=== PATIENT | female | born 1975 | race Two or more races ===

== ENCOUNTER 2025-05-25 06:00 | Day surgery (SDC) | payer OTHER ==
[2025-05-23 11:12] VITALS: BP 122/77
[2025-05-23 12:12] LABS: COVID-19 AG NEGATIVE (NEGATIVE)
[~2025-05-25] VITALS: Ht 175.3 cm; Wt 88.9 kg
[~2025-05-25 06:00] MED LIST: TOPROL XL200 MG PO
[2025-05-25] MEDS ORDERED: CEFAZOLIN SODIUM 1,000 MG VIAL ONE (11:38)
== END 2025-05-25 18:50 | disposition home or self-care (01) ==
LOC: CIR.AMB 06:00
PROVIDERS: ATTEND Surgery
DX: C50.212 Malignant neoplasm of upper-inner quadrant of left female breast (principal); R59.0 Localized enlarged lymph nodes